=== PATIENT | female | born 1950 | race Caucasian/White ===

== ENCOUNTER 2024-02-07 11:31 | Observation (INO) ==
[~2024-02-07 11:31] MED LIST: Bupivacaine 0.5% PF 10 ML SDV VIAL INJ ONE; Dexamethasone IV 4 MG/ML VIAL 1 ml VIAL ONE; HYDROmorphone 1 MG/1 ML SYRINGE IV PRN; Lidocaine 2% PF 5 ML VIAL ONE; Midazolam 2 mg/2 ml VIAL 1 mg/ml 2 ml VIAL (2 mg) ONE; Naloxone 0.4 mg VIAL 0.4 mg/ml 1 ml VIAL IV PRN; Ondansetron 4 mg VIAL 2 MG/ML 2 ml VIAL ONE; Phenylephrine IV 10 MG/ML 1 ml VIAL ONE; Propofol 10 MG/ML 20 ML BTL ONE; fentaNYL 100 mcg/2 ml 50 MCG/ML VIAL ONE
[2024-02-07] MEDS ORDERED: ceFAZolin 2 GM PREMIX 2 GM/50 ML BAG ONE (12:05)
[2024-02-07 12:11] LABS: Rapid COVID-19 Molecular Undetected (Undetected)
[2024-02-07] MEDS: Buffered Lidocaine 1% SYRIN 1 ml INTRADERM ONE (12:16)
[2024-02-07] MEDS: Lactated Ringers 1000 ml BAG 1,000 ML IV SCH ×2 (12:17→21:34)
[2024-02-07] MEDS ORDERED: Tranexamic Acid 1 GM/100ML BAG 2,000 MG/200 ML BAG IV ONE (12:36)
[2024-02-07] MEDS ORDERED: Midazolam 2 mg/2 ml VIAL 1 mg/ml 2 ml VIAL (2 mg) ONE ×2 (13:15→13:51)
[2024-02-07] MEDS ORDERED: Propofol 10 MG/ML 20 ML BTL ONE ×2 (13:17→17:13)
[2024-02-07] MEDS ORDERED: ROPIVACAINE 5 MG/ML 30 ML BTL (0.5%) ONE ×2 (13:51→14:15)
[2024-02-07] MEDS ORDERED: KETAMINE HCL 10 MG/ML 20 ml VIAL (200 MG) ONE (15:06)
[2024-02-07] MEDS ORDERED: Ondansetron 4 mg VIAL 2 MG/ML 2 ml VIAL IV PRN (15:25)
[2024-02-07] MEDS ORDERED: Magnesium Hydroxide LIQ 30 ML UDC PO PRN (15:25)
[2024-02-07] MEDS ORDERED: Ondansetron ODT 4 mg TAB 4 MG TAB PO PRN (15:25)
[2024-02-07] MEDS ORDERED: Lactulose 30 ml UDC PO PRN (15:25)
[2024-02-07] MEDS ORDERED: Glycopyrrolate IV 0.2 MG/ML 1 ML VIAL ONE (15:32)
[2024-02-07] MEDS ORDERED: Dextrose 50% Syringe 50 ml 25 GM/50 ML SYRINGE IV PUSH PRN (18:23)
[2024-02-07] MEDS: Magnesium Hydroxide LIQ 30 ML UDC PO SCH (21:29)
[2024-02-07] MEDS: Morphine 2 MG/ML SYRINGE IV PRN (23:44)
[2024-02-08] MEDS: ceFAZolin 1 GM ADVAN 1 GM in NS 0.9% 50 ML 50 ML IVPB SCH (00:12)
[2024-02-08 06:50] LABS: Hematocrit 30.3 % (35-45); Hemoglobin 10.2 g/dL (11.5-14.3); Mean Platelet Volume 9.5 fL (7.5-11.2); Platelet Count 243 10^3/uL (150-450)
[2024-02-08 07:19] LABS: Calcium 8.1 mg/dL (8.6-10.3); Creatinine, Serum 1.18 mg/dL (0.51-0.95); eGFR CKD-EPI 48.8 (>60)
[2024-02-08] MEDS: Vitamin THERAPEUTIC TAB PO SCH (08:29)
[2024-02-08 14:26] VITALS: BP 112/47
== END 2024-02-08 16:10 | disposition home or self-care (01) ==
LOC: OR 11:31 → SSU 11:31
PROVIDERS: ADMIT Orthopaedic Surgery Adult Reconstructive Orthopaedic Surgery; ATTEND Orthopaedic Surgery Adult Reconstructive Orthopaedic Surgery